=== PATIENT | female | born 2000 | race Caucasian/White ===

== ENCOUNTER 2023-07-07 16:33 | Emergency (ER) | payer OTHER ==
[~2023-07-07] VITALS: Ht 165.1 cm; Wt 56.7 kg
[2023-07-07 16:38] VITALS: BP_SYST 121; PULSE 96; RESP 18; TEMP 98.3; O2SAT 98
[2023-07-07] MEDS ORDERED: [UNRECOGNIZED DRUG - CODE] PO (17:24)
[2023-07-07] MEDS ORDERED: DOXY100C PO (17:24)
[2023-07-07] MEDS: cefTRIAXone 500 MG in LIDOCAINE 1%, 20 ML MDV 1 ML IM ONE (17:32)
[2023-07-07 17:46] VITALS: BP_SYST 121; PULSE 96; RESP 18; TEMP 98.3; O2SAT 98
== END 2023-07-07 17:43 | disposition home or self-care (01) ==
LOC: EDBD 16:33 → SED 16:33
DX: Z30.012 Encounter for prescription of emergency contraception (principal); Z79.899 Other long term (current) drug therapy
CPT/HCPCS: 99283; 81025; 96372; J0696